=== PATIENT | male | born 1995 | race Caucasian/White ===

== ENCOUNTER 2020-12-08 01:24 | Observation (INO) ==
[2020-12-08] MEDS ORDERED: SODIUM CHLORIDE 0.9% 1,000 ML IV STA ×2 (01:40→03:56)
[2020-12-08 02:03] LABS: Basophils # 0.1 10*3/uL (0.0-0.2); Basophils % 0.3 % (0.0-0.8); Eosinophils % 0.1 % (0.00-10.9); Hematocrit 32.8 VOL% (42.0-52.0); Hemoglobin 11.1 GM/DL (14.0-18.0); Immature Granulocytes % 21.5 %; Immature Granulocytes Absolute 6.45 #; Lymphocytes # 1.6 10*3/uL (1.4-4.0); Lymphocytes % 5.4 % (21.2-54.2); Mean Corpuscular HGB Conc 33.8 GM/DL (32-36); Mean Corpuscular Volume 86.3 FL (87-102); Mean Platelet Volume 10.3 FL (9.6-12.0); Monocytes % 2.8 % (1.7-12.7); NRBC # 0.02 10*3/uL; Neutrophils % 69.9 % (38.7-73.9); Platelet Count 103 T/CUMM (130-400); Red Cell Distribution Width 21.9 % (9.3-17.3); White Blood Count 29.9 T/CUMM (4-12)
[2020-12-08 02:22] LABS: Albumin 3.4 G/DL (3.4-5.0); Bilirubin,Total 0.6 MG/DL (0.2-1.0); Calcium 8.7 MG/DL (8.5-10.1); Osmolality,Calculated 279.4 MOS/KG (273-304); Potassium 3.7 MMOL/L (3.5-5.1); Total Protein 6.7 G/DL (6.4-8.3)
[2020-12-08 03:18] LABS: Bilirubin,Urine Negative (Negative); Blood, Urine Negative (Negative); Glucose,Urine (UA) Negative (Negative); Hyaline Casts,Urine 1 /LPF (0-3); Ketones,Urine Negative (Negative); Mucus,Urine Occasional /LPF (Occasional); Nitrite,Urine Negative (Negative); Protein,Urine Negative; RBC,Urine 2 /HPF (0-4); Urine Appearance CLEAR (Clear); Urine Color Yellow (Yellow); Urine Specific Gravity 1.024 (1.001-1.035); Urine Urobilinogen < 2.0 EU/DL (0.2-1.0); WBC,Urine 1 /HPF (0-6)
[2020-12-08] MEDS ORDERED: MEROPENEM 1,000 MG in SODIUM CHLORIDE 0.9% 100 ML IV ONE ×2 (03:56→04:30)
[2020-12-08] MEDS ORDERED: ACETAMINOPHEN 325 MG TABLET PO PRN (04:18)
[2020-12-08] MEDS ORDERED: ONDANSETRON 4 MG/2 ML VIAL IV PRN (04:18)
[2020-12-08] MEDS ORDERED: DEXTROSE 50% 25 GM/50 ML VIAL IV PRN (04:18)
[2020-12-08] MEDS ORDERED: GLUCAGON 1 MG VIAL IM PRN (04:18)
[2020-12-08] MEDS ORDERED: MEROPENEM 500 MG VIAL ONE (04:37)
[2020-12-08] MEDS ORDERED: LOPERAMIDE 2 MG CAPSULE PO PRN (04:40)
[2020-12-08] MEDS ORDERED: chlorproMAZINE 25 MG TABLET PO PRN (04:40)
[2020-12-08] MEDS ORDERED: LORATADINE 10 MG TABLET PO PRN (04:40)
[2020-12-08 07:05] LABS: Basophils # 0.1 10*3/uL (0.0-0.2); Basophils % 0.2 % (0.0-0.8); Eosinophils % 0.1 % (0.00-10.9); Hematocrit 27.9 VOL% (42.0-52.0); Immature Granulocytes % 20.3 %; Immature Granulocytes Absolute 5.64 #; Lymphocytes % 3.6 % (21.2-54.2); Mean Corpuscular HGB Conc 32.6 GM/DL (32-36); Mean Corpuscular Volume 89.1 FL (87-102); Mean Platelet Volume 10.9 FL (9.6-12.0); Monocytes % 1.9 % (1.7-12.7); Neutrophils % 73.9 % (38.7-73.9); Red Blood Count 3.13 MC/CUMM (3.8-5.5); Red Cell Distribution Width 21.9 % (9.3-17.3); White Blood Count 27.8 T/CUMM (4-12)
[2020-12-08 07:12] LABS: Hemoglobin 9.1 GM/DL (14.0-18.0); Platelet Count 79 T/CUMM (130-400)
[2020-12-08 08:09] LABS: Band Neutrophils 3 % (0-10); Hypochromasia 2+; Lymphocytes 5 % (20-55); Metamyelocytes 1 %; Microcytosis 2+; Myelocytes 1 %; Platelet Estimate Decreased; Polychromasia Slight; Reactive Lymphocytes Few; Segmented Neutrophils 90 % (50-85); Total Cells Counted 100
[2020-12-08 08:35] LABS: Band Neutrophils 4 % (0-10); Lymphocytes 6 % (20-55); Metamyelocytes 3 %; Myelocytes 1 %; Platelet Estimate Decreased; Segmented Neutrophils 83 % (50-85); Total Cells Counted 100
[2020-12-08 08:36] LABS: Anisocytosis 2+; Hypochromasia 2+; Macrocytosis 2+; Polychromasia Few
[2020-12-08] MEDS: FLUCONAZOLE 100 MG TABLET PO SCH (08:40)
[2020-12-08] MEDS: PANTOPRAZOLE 40 MG TABLET PO SCH (08:40)
[2020-12-08] MEDS: SODIUM CHLORIDE 0.9% 1,000 ML IV SCH ×2 (08:41→21:45)
[2020-12-08] MEDS ORDERED: valACYclovir 500 MG TABLET PO SCH (09:00)
[2020-12-08] MEDS: valACYclovir 500 MG TABLET PO SCH (09:31)
[2020-12-08] MEDS: MEROPENEM 500 MG in SODIUM CHLORIDE 0.9% 100 ML IV SCH ×3 (11:08→23:59)
[2020-12-08] MEDS ORDERED: MEROPENEM 2,000 MG in SODIUM CHLORIDE 0.9% 100 ML IV SCH (12:00)
[2020-12-08 13:12] LABS: Hematocrit 28.2 VOL% (42.0-52.0); Hemoglobin 9.4 GM/DL (14.0-18.0)
[2020-12-08] MEDS ORDERED: GABAPENTIN 100 MG CAPSULE PO SCH (21:00)
[2020-12-08 22:14] LABS: Hematocrit 28.9 VOL% (42.0-52.0); Hemoglobin 9.7 GM/DL (14.0-18.0)
[2020-12-09] MEDS: MEROPENEM 500 MG in SODIUM CHLORIDE 0.9% 100 ML IV SCH ×2 (06:00→13:23)
[2020-12-09 07:04] LABS: Hematocrit 25.6 VOL% (42.0-52.0); Hemoglobin 8.4 GM/DL (14.0-18.0)
[2020-12-09] MEDS: SODIUM CHLORIDE 0.9% 1,000 ML IV SCH (08:42)
[2020-12-09] MEDS: PANTOPRAZOLE 40 MG TABLET PO SCH (08:43)
[2020-12-09] MEDS: FLUCONAZOLE 100 MG TABLET PO SCH (08:43)
[2020-12-09] MEDS: valACYclovir 500 MG TABLET PO SCH (08:43)
[2020-12-09 11:05] LABS: Basophils % 0.2 % (0.0-0.8); Eosinophils # 0.1 10*3/uL (0.0-0.87); Eosinophils % 0.3 % (0.00-10.9); Hematocrit 29.7 VOL% (42.0-52.0); Hemoglobin 9.8 GM/DL (14.0-18.0); Immature Granulocytes % 1.5 %; Immature Granulocytes Absolute 0.35 #; Lymphocytes # 0.7 10*3/uL (1.4-4.0); Lymphocytes % 3.2 % (21.2-54.2); Mean Corpuscular Volume 89.2 FL (87-102); Mean Platelet Volume 9.7 FL (9.6-12.0); Monocytes % 1.3 % (1.7-12.7); Neutrophils % 93.5 % (38.7-73.9); Platelet Count 74 T/CUMM (130-400); Red Blood Count 3.33 MC/CUMM (3.8-5.5); Red Cell Distribution Width 21.9 % (9.3-17.3); White Blood Count 22.6 T/CUMM (4-12)
[2020-12-09 11:56] VITALS: BP 127/72
[2020-12-09 13:00] LABS: Eosinophils 3 % (0-10); Lymphocytes 6 % (20-55); Platelet Estimate Adequate; Polychromasia Slight; Segmented Neutrophils 89 % (50-85); Total Cells Counted 100
== END 2020-12-09 13:45 | disposition home or self-care (01) ==
LOC: N.EDINP 01:24 → N.ED 01:24 → SUATTDRO 04:39 → N.EDINP 05:42 → N.TELEN 05:54
PROVIDERS: ADMIT Family Medicine; ATTEND Internal Medicine